=== PATIENT | female | born 1975 | race Caucasian/White ===

== ENCOUNTER → 2016-10-25 | Outpatient (CLI) | payer OTHER ==
[~2016-10-25] MED LIST: APNO TOP; MOTRIN800 MG PO; PRENATAL 1+1)(P1 TAB PO; TUMS200 MG PO; TYLENOL325 MG PO
== END | disposition disaster alternative care site (69) ==
LOC: GRAD 11:43
DX: M25.562 Pain in left knee (principal); M25.462 Effusion, left knee